=== PATIENT | female | born 1975 | race Caucasian/White ===

== ENCOUNTER 2022-02-28 09:40 | Inpatient (IN) ==
[2022-02-28] MEDS ORDERED: ASPIRIN 325 MG TABLET ONE (09:45)
[2022-02-28] MEDS ORDERED: HEPARIN 5,000 UNIT/1 ML VIAL ONE (09:45)
[2022-02-28] MEDS ORDERED: ASPIRIN 325 MG TABLET PO STA (09:45)
[2022-02-28] MEDS ORDERED: ONDANSETRON 4 MG/2 ML VIAL IV STA (09:45)
[2022-02-28] MEDS ORDERED: fentaNYL 100 MCG/2 ML VIAL IV STA (09:47)
[2022-02-28] MEDS ORDERED: HEPARIN 5,000 UNIT/1 ML VIAL IV STA (09:47)
[2022-02-28 09:51] VITALS: BP 149/95
[2022-02-28 10:04] LABS: Basophils # 0.1 10*3/uL (0.0-0.2); Basophils % 0.4 % (0.0-0.8); Eosinophils # 0.1 10*3/uL (0.0-0.87); Eosinophils % 0.6 % (0.00-10.9); Hematocrit 41.5 VOL% (35.7-47.0); Hemoglobin 13.2 GM/DL (12.0-16.0); Immature Granulocytes % 0.4 %; Immature Granulocytes Absolute 0.05 #; Lymphocytes # 2.2 10*3/uL (1.4-4.0); Lymphocytes % 17.6 % (21.3-54.2); Mean Corpuscular HGB Conc 31.8 GM/DL (32-36); Mean Corpuscular Volume 87.9 FL (87-102); Mean Platelet Volume 9.7 FL (9.6-12.0); Monocytes # 0.6 10*3/uL (0.11-0.8); Monocytes % 4.9 % (1.7-12.7); Neutrophils % 76.1 % (38.7-73.9); Platelet Count 425 T/CUMM (130-400); Red Blood Count 4.72 MC/CUMM (3.8-5.5); Red Cell Distribution Width 13.3 % (9.3-17.3); White Blood Count 12.6 T/CUMM (4-12)
[2022-02-28] MEDS ORDERED: MIDAZOLAM 2 MG/2 ML VIAL ONE ×2 (10:05→10:27)
[2022-02-28] MEDS ORDERED: fentaNYL 100 MCG/2 ML VIAL ONE (10:05)
[2022-02-28 10:19] LABS: INR 0.9; PT Patient Result 10.3 SECS (10.1-12.1); Partial Thromboplastin Time 27.8 SECS (23.7-32.9)
[2022-02-28 10:23] LABS: Alanine Aminotransferase 73 U/L (13-56); Albumin 4.5 G/DL (3.4-5.0); Alkaline Phosphatase 88 U/L (45-117); Aspartate Amino Transferase 66 U/L (0-37); Bilirubin,Total < 0.39 MG/DL (0.20-1.00); Blood Urea Nitrogen 6 MG/DL (7-18); Calcium 11.5 MG/DL (8.5-10.1); Carbon Dioxide 26 MMOL/L (21-32); Chloride 102 MMOL/L (98-107); Glucose 147 MG/DL (74-106); Osmolality,Calculated 273.8 MOS/KG (273-304); Potassium 4.2 MMOL/L (3.5-5.1); Sodium 137 MMOL/L (136-145); Total Protein 8.7 G/DL (6.4-8.2)
[2022-02-28] MEDS ORDERED: ENOXAPARIN 30 MG/0.3 ML SYRINGE ONE (10:23)
[2022-02-28] MEDS ORDERED: TIROFIBAN 5,000 MCG/100 ML PREMIX IV ONE (10:26)
[2022-02-28] MEDS ORDERED: TIROFIBAN 5,000 MCG/100 ML PREMIX IV SCH (10:30)
[2022-02-28] MEDS ORDERED: TICAGRELOR 90 MG TABLET ONE (10:42)
[2022-02-28] MEDS ORDERED: ALUMINUM/MAGNES/SIMETH MAX STR 30 ML UDCUP PO PRN (10:51)
[2022-02-28] MEDS ORDERED: ONDANSETRON 4 MG/2 ML VIAL IV PRN (10:51)
[2022-02-28] MEDS ORDERED: diphenhydrAMINE CAP 25 MG CAPSULE PO PRN (10:51)
[2022-02-28] MEDS ORDERED: ZALEPLON 5 MG CAPSULE PO PRN (10:51)
[2022-02-28] MEDS ORDERED: POTASSIUM CHLORIDE 20 MEQ TABLET PO PRN (10:52)
[2022-02-28] MEDS ORDERED: DEXTROSE 10% 250 ML BAG IV PRN (10:52)
[2022-02-28] MEDS ORDERED: MAGNESIUM SULF RIDER 4 GM/100 ML PREMIX IV PRN (10:52)
[2022-02-28] MEDS ORDERED: GLUCAGON 1 MG VIAL IM PRN (10:52)
[2022-02-28] MEDS ORDERED: MAGNESIUM SULF RIDER 2 GM/50 ML PREMIX IV PRN (10:52)
[2022-02-28] MEDS ORDERED: SODIUM CHLORIDE 0.9% 1,000 ML IV SCH (11:00)
[2022-02-28] MEDS: INSULIN REGULAR 100 UNIT/ML SUBCUT SCH ×3 (11:31→20:40)
[2022-02-28] MEDS: PANTOPRAZOLE 40 MG TABLET PO SCH (11:40)
[2022-02-28] MEDS: METOPROLOL TARTRATE 25 MG TABLET PO SCH ×2 (11:40→20:20)
[2022-02-28] MEDS ORDERED: LOSARTAN 25 MG TABLET PO SCH (15:07)
[2022-02-28] MEDS ORDERED: LOSARTAN 25 MG TABLET PO ONE (15:09)
[2022-02-28 16:18] LABS: RBC,Urine 4649 /HPF (0-4)
[2022-02-28 16:23] LABS: Urine Appearance Cloudy (Clear); Urine Color Red (Yellow)
[2022-02-28 16:24] LABS: Glucose,Urine (UA) Negative (Negative); Ketones,Urine Negative (Negative); Protein,Urine 30 mg/dL (Negative); Urine pH 7.5 (4.5-8.0)
[2022-02-28 16:25] LABS: Bilirubin,Urine Negative (Negative); Blood, Urine Large mg/dL (Negative); Nitrite,Urine Negative (Negative); Urine Urobilinogen 0.2 eU/dL (<2.0)
[2022-02-28 16:57] LABS: Barbiturates Screen,Urine Negative (Negative); Cannabinoid Screen,Urine Negative (Negative); Opiate Screen,Urine Negative (Negative)
[2022-02-28 16:58] LABS: Benzodiazepines Screen,Urine Positive (Negative); Phencyclidine Screen,Urine Negative (Negative)
[2022-02-28] MEDS: TICAGRELOR 90 MG TABLET PO SCH (20:20)
[2022-02-28] MEDS ORDERED: ROSUVASTATIN 20 MG TABLET PO SCH (21:00)
[2022-03-01 04:30] LABS: Basophils % 0.3 % (0.0-0.8); Eosinophils # 0.1 10*3/uL (0.0-0.87); Hemoglobin 10.5 GM/DL (12.0-16.0); Immature Granulocytes % 0.4 %; Immature Granulocytes Absolute 0.05 #; Lymphocytes # 2.8 10*3/uL (1.4-4.0); Mean Corpuscular HGB Conc 31.8 GM/DL (32-36); Mean Corpuscular Volume 86.8 FL (87-102); Mean Platelet Volume 9.8 FL (9.6-12.0); Monocytes # 0.7 10*3/uL (0.11-0.8); Monocytes % 6.3 % (1.7-12.7); Platelet Count 318 T/CUMM (130-400); Red Cell Distribution Width 13.4 % (9.3-17.3); White Blood Count 11.5 T/CUMM (4-12)
[2022-03-01 04:53] LABS: Alanine Aminotransferase 54 U/L (13-56); Albumin 3.3 G/DL (3.4-5.0); Alkaline Phosphatase 66 U/L (45-117); Aspartate Amino Transferase 65 U/L (0-37); Bilirubin,Total < 0.39 MG/DL (0.20-1.00); Blood Urea Nitrogen 8 MG/DL (7-18); Calcium 8.4 MG/DL (8.5-10.1); Carbon Dioxide 24 MMOL/L (21-32); Chloride 108 MMOL/L (98-107); Cholesterol 142 MG/DL (50-200); Glucose 133 MG/DL (74-106); HDL Cholesterol 26 MG/DL (40-60); Osmolality,Calculated 278.4 MOS/KG (273-304); Potassium 4.2 MMOL/L (3.5-5.1); Risk Ratio 5.46; Sodium 140 MMOL/L (136-145); Total Protein 6.6 G/DL (6.4-8.2); Triglycerides 301 MG/DL (2-150); VLDL Cholesterol 60.2 MG/DL
[2022-03-01] MEDS: INSULIN REGULAR 100 UNIT/ML SUBCUT SCH ×4 (08:02→21:20)
[2022-03-01] MEDS: TICAGRELOR 90 MG TABLET PO SCH ×2 (08:15→20:32)
[2022-03-01] MEDS: METOPROLOL TARTRATE 25 MG TABLET PO SCH ×2 (08:15→20:32)
[2022-03-01] MEDS: LOSARTAN 25 MG TABLET PO SCH (08:15)
[2022-03-01] MEDS: PANTOPRAZOLE 40 MG TABLET PO SCH (08:15)
[2022-03-01] MEDS: ASPIRIN EC 81 MG TABLET PO SCH (08:15)
[2022-03-01] MEDS: NON-FORMULARY MEDICATION (Bictegrav-Emtricit-Tenofov Ala [Biktarvy] 50-200-25 mg tablet) PO SCH (08:16)
[2022-03-01] MEDS ORDERED: INFLUENZA VIRUS VACCINE 0.5 ML SYRINGE IM ONE (09:00)
[2022-03-02 05:07] LABS: Basophils % 0.4 % (0.0-0.8); Eosinophils # 0.2 10*3/uL (0.0-0.87); Eosinophils % 1.8 % (0.00-10.9); Hematocrit 32.5 VOL% (35.7-47.0); Hemoglobin 10.1 GM/DL (12.0-16.0); Immature Granulocytes % 0.4 %; Immature Granulocytes Absolute 0.04 #; Lymphocytes # 2.6 10*3/uL (1.4-4.0); Lymphocytes % 24.5 % (21.3-54.2); Mean Corpuscular HGB Conc 31.1 GM/DL (32-36); Mean Platelet Volume 10.1 FL (9.6-12.0); Monocytes # 0.7 10*3/uL (0.11-0.8); Neutrophils % 65.9 % (38.7-73.9); Platelet Count 315 T/CUMM (130-400); Red Blood Count 3.65 MC/CUMM (3.8-5.5); Red Cell Distribution Width 13.6 % (9.3-17.3); White Blood Count 10.6 T/CUMM (4-12)
[2022-03-02 05:27] LABS: Alanine Aminotransferase 43 U/L (13-56); Albumin 3.3 G/DL (3.4-5.0); Alkaline Phosphatase 65 U/L (45-117); Aspartate Amino Transferase 36 U/L (0-37); Bilirubin,Total < 0.39 MG/DL (0.20-1.00); Blood Urea Nitrogen 12 MG/DL (7-18); Calcium 8.6 MG/DL (8.5-10.1); Calcium 8.7 MG/DL (8.5-10.1); Carbon Dioxide 23 MMOL/L (21-32); Chloride 109 MMOL/L (98-107); Glucose 146 MG/DL (74-106); Osmolality,Calculated 277.7 MOS/KG (273-304); Osmolality,Calculated 281.4 MOS/KG (273-304); Potassium 3.9 MMOL/L (3.5-5.1); Potassium 4.2 MMOL/L (3.5-5.1); Sodium 138 MMOL/L (136-145); Total Protein 6.9 G/DL (6.4-8.2)
[2022-03-02] MEDS: INSULIN REGULAR 100 UNIT/ML SUBCUT SCH (07:58)
[2022-03-02] MEDS ORDERED: metFORMIN 500 MG TABLET PO SCH (08:00)
[2022-03-02] MEDS: METOPROLOL TARTRATE 25 MG TABLET PO SCH (08:38)
[2022-03-02] MEDS: ASPIRIN EC 81 MG TABLET PO SCH (08:38)
[2022-03-02] MEDS: LOSARTAN 25 MG TABLET PO SCH (08:39)
[2022-03-02] MEDS: PANTOPRAZOLE 40 MG TABLET PO SCH (08:39)
[2022-03-02] MEDS: TICAGRELOR 90 MG TABLET PO SCH (08:39)
[2022-03-02] MEDS: NON-FORMULARY MEDICATION (Bictegrav-Emtricit-Tenofov Ala [Biktarvy] 50-200-25 mg tablet) PO SCH (08:41)
[2022-03-02] MEDS ORDERED: ROSUVASTATIN 20 MG TABLET PO SCH (09:00)
== END 2022-03-02 11:30 | disposition home or self-care (01) | DRG 247 ==
LOC: N.ED 09:40 → N.CC 10:02
PROVIDERS: ADMIT Internal Medicine Cardiovascular Disease; ATTEND Internal Medicine Cardiovascular Disease
PROC: CLCCHCL (ICD-10-PCS; 2022-02-28 11:15)